=== PATIENT | female | born 1980 | race Caucasian/White ===

== ENCOUNTER 2022-06-18 16:17 | Emergency (ER) | payer MEDICAID, OTHER ==
[~2022-06-18] VITALS: Ht 172.7 cm; Wt 86.0 kg
[2022-06-18 16:32] VITALS: BP 120/76
[2022-06-18 18:05] LABS: BASOPHILS % 0.2 % (0.0-2.0); EOSINOPHILS % 0.5 % (0.0-5.0); HEMATOCRIT. 38.9 % (36.0-48.0); HEMOGLOBIN. 12.7 g/dL (12.0-16.0); LYMPHOCYTES % 20.7 % (20.0-50.0); MEAN CORPUSCULAR HEMOGLOBIN 26.2 pg (28.0-32.0); MEAN CORPUSCULAR VOLUME 80.1 fL (81.0-99.0); MEAN PLATELET VOLUME 8.7 fl (7.4-10.4); MONOCYTES % 10.8 % (2.0-8.0); NEUTROPHILS % 67.8 % (40.0-76.0); PLATELET 302 x1000/uL (130-400); RED BLOOD CELL COUNT 4.86 mill/uL (4.2-5.4); RED CELL DISTRIBUTION WIDTH 15.8 % (11.6-14.6)
[2022-06-18 18:14] LABS: CHLORIDE 107 mEq/L (98-107)
[2022-06-18 18:19] LABS: HCG SCREEN NEGATIVE
[2022-06-18] MEDS ORDERED: MECL-159 MT (18:32)
== END 2022-06-18 18:54 | disposition home or self-care (01) ==
LOC: ER 16:17
DX: R42 Dizziness and giddiness (principal); I10 Essential (primary) hypertension
CPT/HCPCS: 36415; 71045; 80053; 84484; 84703; 85025; 93005; 99285

== ENCOUNTER 2023-03-25 19:12 | Emergency (ER) | payer MEDICAID, OTHER ==
[~2023-03-25] VITALS: Ht 167.6 cm; Wt 100.0 kg
[~2023-03-25 19:12] MED LIST: MECL-299 MT
[2023-03-25 19:16] VITALS: BP 157/81; PULSE 113; RESP 20; TEMP 99.2; O2SAT 100
[2023-03-25] MEDS ORDERED: ONDANSETRON HCL 4MG/2ML INJ IV NR (19:46)
[2023-03-25] MEDS ORDERED: MORPHINE SULFATE 4 MG/ML CPJ (NOT FOR IM USE) IV STA (19:46)
[2023-03-25] MEDS ORDERED: ONDANSETRON HCL 4MG/2ML INJ IV STA (19:46)
[2023-03-25] MEDS ORDERED: MORPHINE SULFATE 4 MG/ML CPJ (NOT FOR IM USE) IV NR (19:46)
[2023-03-25] MEDS ORDERED: SODIUM CHLORIDE 0.9% 1,000 ML IV ONE (20:00)
[2023-03-25 21:09] LABS: HEMOGLOBIN. 12.7 g/dL (12.0-16.0); MEAN CORPUSCULAR HEMOGLOBIN 26.8 pg (28.0-32.0); MEAN CORPUSCULAR HGB CONC 32.5 g/dL (31.0-37.0); MEAN CORPUSCULAR VOLUME 82.5 fL (81.0-99.0); MEAN PLATELET VOLUME 8.7 fl (7.4-10.4); PLATELET 275 x1000/uL (130-400); RED BLOOD CELL COUNT 4.73 mill/uL (4.2-5.4); RED CELL DISTRIBUTION WIDTH 14.7 % (11.6-14.6); WHITE BLOOD COUNT 13.7 x1000/uL (4.5-11.0)
[2023-03-25 21:11] LABS: DIFFERENTIAL COMMENT 1
[2023-03-25 21:17] LABS: HCG SCREEN NEGATIVE
[2023-03-25 21:21] LABS: ALANINE AMINOTRANSFERASE 35 IU/L (10-49); ALBUMIN 4.2 g/dL (3.2-4.8); ASPARTATE AMINOTRANSFERASE 35 IU/L (<34); BILIRUBIN TOTAL 0.9 mg/dL (0.1-1.0); CALCIUM 9.1 mg/dL (8.7-10.4); CARBON DIOXIDE 19 mEq/L (21-32); CHLORIDE 108 mEq/L (98-107); CREATININE 0.6 mg/dL (0.6-1.0); GLUCOSE 108 mg/dL (70-105); POTASSIUM 3.3 mEq/L (3.5-5.1); PROTEIN TOTAL 7.6 g/dL (6.0-8.3); SODIUM 138 mEq/L (136-145); UREA NITROGEN BLOOD 9 mg/dL (9-23)
[2023-03-25 21:39] LABS: TROPONIN I HIGH SENSITIVITY < 4 ng/L (3.0-34)
[2023-03-25 23:24] LABS: PLATELET ESTIMATE NORMAL
[2023-03-26] MEDS ORDERED: ACET-2708 MT (00:41)
== END 2023-03-26 01:48 | disposition home or self-care (01) ==
LOC: ER 19:12
DX: R10.13 Epigastric pain (principal); R11.2 Nausea with vomiting, unspecified; I10 Essential (primary) hypertension
CPT/HCPCS: 99285; 74176; 96374; 76830; 76856; 71045; 96361; 96375; 80053; 84703; 83690; 85025; 84484; 36415; 93005; J2405; J2270; J7030

== ENCOUNTER 2023-09-08 22:23 | Emergency (ER) | payer MEDICAID, OTHER ==
[~2023-09-08] VITALS: Ht 165.1 cm; Wt 91.0 kg
[~2023-09-08 22:23] MED LIST changes: +ACET-2708 MT
[2023-09-08 22:25] VITALS: TEMP 98.6; O2SAT 100
[2023-09-08] MEDS ORDERED: MORPHINE SULFATE 2 MG/ML CPJ (NOT FOR IM USE) IV ONE (23:00)
[2023-09-09 00:06] LABS: BASOPHILS % 0.5 % (0.0-2.0); EOSINOPHILS % 1.1 % (0.0-5.0); HEMATOCRIT. 37.1 % (36.0-48.0); HEMOGLOBIN. 12.3 g/dL (12.0-16.0); LYMPHOCYTES % 16.8 % (20.0-50.0); MEAN CORPUSCULAR HEMOGLOBIN 27.8 pg (28.0-32.0); MEAN CORPUSCULAR HGB CONC 33.1 g/dL (31.0-37.0); MEAN CORPUSCULAR VOLUME 84.1 fL (81.0-99.0); NEUTROPHILS % 71.6 % (40.0-76.0); PLATELET 329 x1000/uL (130-400); RED BLOOD CELL COUNT 4.42 mill/uL (4.2-5.4); RED CELL DISTRIBUTION WIDTH 14.5 % (11.6-14.6)
[2023-09-09 00:14] LABS: CHLORIDE 108 mEq/L (98-107); POTASSIUM 3.4 mEq/L (3.5-5.1); SODIUM 139 mEq/L (136-145)
[2023-09-09 00:15] LABS: CALCIUM 9.1 mg/dL (8.7-10.4); CARBON DIOXIDE 25 mEq/L (21-32)
[2023-09-09 00:18] LABS: INR 0.9; PARTIAL THROMBOPLASTIN TIME 23.1 sec (23.4-31.0); PROTHROMBIN TIME 10.3 sec (9.6-11.0)
[2023-09-09 00:20] LABS: CREATININE 0.7 mg/dL (0.6-1.0); GLUCOSE 118 mg/dL (70-105); UREA NITROGEN BLOOD 6 mg/dL (9-23)
[2023-09-09] MEDS: MORPHINE SULFATE 2 MG/ML CPJ (NOT FOR IM USE) IV NR (00:36)
[2023-09-09] MEDS ORDERED: LIDO1ADH23 TP (01:40)
[2023-09-09] MEDS ORDERED: METH-653 MT (01:40)
[2023-09-09] MEDS ORDERED: IBUP-2028 MT (01:40)
[2023-09-09] MEDS ORDERED: TOPUD PO (01:40)
[2023-09-09] MEDS ORDERED: METHOCARBAMOL 500MG TABLET PO ONE (01:45)
[2023-09-09] MEDS ORDERED: KETOROLAC 30MG/ML VIAL IV ONE (01:45)
[2023-09-09 02:07] VITALS: BP 143/82; PULSE 101; RESP 18
[2023-09-09] MEDS: KETOROLAC 30MG/ML VIAL IV NR (02:07)
[2023-09-09] MEDS: METHOCARBAMOL 500MG TABLET PO NR (02:08)
[2023-09-09] MEDS ORDERED: IOHEXOL-350 100 ML BOTTLE ONE (03:28)
== END 2023-09-09 02:22 | disposition home or self-care (01) ==
LOC: ER 22:23
DX: M54.2 Cervicalgia (principal); R51.9 Headache, unspecified; I10 Essential (primary) hypertension
CPT/HCPCS: 80048; 81025; 85025; 85610; 85730; 36415; 99285; 70498; 70450; 72125; 96374; 96375; Q9967; J1885; J2270; Z7610 ×2

== ENCOUNTER 2025-01-16 00:01 | Emergency (ER) | payer OTHER ==
[~2025-01-16] VITALS: Ht 157.5 cm; Wt 67.4 kg
[~2025-01-16 00:01] MED LIST changes: +IBUP-2028 MT; +LIDO1ADH23 TP; +METH-653 MT; +TOPUD PO
[2025-01-16 00:09] VITALS: O2SAT 100
[2025-01-16] MEDS: LIDOCAINE HCL 1% 20ML VIAL INFIL ONE (00:30)
[2025-01-16] MEDS: ACETAMINOPHEN 325MG TABLET PO ONE (00:50)
[2025-01-16] MEDS: TETANUS, DIPHTHERIA, PERTUSSIS VAC/PF 0.5ML (>10YR OLD) IM ONE (00:51)
[2025-01-16] MEDS ORDERED: AMOX1TAB16 MT (01:23)
[2025-01-16 01:34] VITALS: BP 132/79; PULSE 96; RESP 18; TEMP 37.1; O2SAT 100
== END 2025-01-16 01:36 | disposition home or self-care (01) ==
LOC: ER 00:01
DX: S61.451A Open bite of right hand, initial encounter (principal); I10 Essential (primary) hypertension; Z90.49 Acquired absence of other specified parts of digestive tract; W54.0XXA Bitten by dog, initial encounter; Y93.89 Activity, other specified; Y92.89 Other specified places as the place of occurrence of the external cause; Y99.8 Other external cause status
CPT/HCPCS: 90715; 12002; 90471; 99283; J2003; Z7610

== ENCOUNTER 2025-01-24 17:41 | Emergency (ER) | payer OTHER ==
[~2025-01-24] VITALS: Ht 167.6 cm; Wt 66.0 kg
[~2025-01-24 17:41] MED LIST changes: +AMOX1TAB16 MT
[2025-01-24 18:02] VITALS: O2SAT 100
[2025-01-24 19:27] VITALS: BP 123/74; PULSE 77; RESP 24; TEMP 37.2; O2SAT 97
== END 2025-01-24 19:28 | disposition home or self-care (01) ==
LOC: ER 17:41
DX: S61.411D Laceration without foreign body of right hand, subsequent encounter (principal); W54.1XXD Struck by dog, subsequent encounter; Z90.49 Acquired absence of other specified parts of digestive tract; Z79.899 Other long term (current) drug therapy; Z98.890 Other specified postprocedural states
CPT/HCPCS: 73130; 99283; Z7610